=== PATIENT | female | born 2000 | race Caucasian/White ===

== ENCOUNTER 2022-04-10 19:23 | Emergency (ER) | payer BC ==
[2022-04-10] MEDS ORDERED: Ondansetron 4 MG Tab.DIS PO STA (20:00)
[2022-04-10 20:55] LABS: STREP A BY PCR NOT DETECTED (NOT DETECT)
[2022-04-10 21:09] LABS: CORONAVIRUS COVID-19 NAA NEGATIVE (NEGATIVE)
== END 2022-04-10 21:33 | disposition home or self-care (01) ==
LOC: FB.ED 19:23
DX: J02.9 Acute pharyngitis, unspecified (principal); Z20.828 Contact with and (suspected) exposure to other viral communicable diseases
CPT/HCPCS: 87635; 87651; 99281; 99284; Q0162; U0002

== ENCOUNTER 2022-05-01 17:22 | Emergency (ER) | payer BC ==
[2022-05-01] MEDS ORDERED: Metoprolol Tartrate 25 MG Tab PO ONE (17:54)
[2022-05-01 18:26] LABS: ESTIMATED GFR 136 mL/min (>60)
[2022-05-01] MEDS ORDERED: Potassium Chloride 20 MEQ Tab.ER PO STA (18:44)
== END 2022-05-01 18:58 | disposition home or self-care (01) ==
LOC: FB.ED 17:22
DX: R00.2 Palpitations (principal); E87.6 Hypokalemia; E66.9 Obesity, unspecified; Z68.41 Body mass index [BMI] 40.0-44.9, adult; Z87.891 Personal history of nicotine dependence
CPT/HCPCS: 36415; 80053; 83735; 84484; 85025; 99285; A9270-GY

== ENCOUNTER 2022-05-10 18:46 | Emergency (ER) | payer BC ==
[2022-05-10] MEDS ORDERED: Ibuprofen 800 MG Tab PO ONE (19:07)
[2022-05-10] MEDS ORDERED: Lidocaine 2% Viscous Solution 15 ML UD PO ONE (19:09)
[2022-05-10] MEDS ORDERED: Acetaminophen 500 MG Tab PO ONE (19:09)
== END 2022-05-10 19:27 | disposition home or self-care (01) ==
LOC: FB.ED 18:46
DX: T23.101A Burn of first degree of right hand, unspecified site, initial encounter (principal); E66.9 Obesity, unspecified; Z68.42 Body mass index [BMI] 45.0-49.9, adult; X12.XXXA Contact with other hot fluids, initial encounter
CPT/HCPCS: 99283; A9270-GY

== ENCOUNTER 2022-05-28 18:24 | Emergency (ER) | payer BC ==
[2022-05-28] MEDS ORDERED: Ondansetron 4 MG Tab.DIS PO ONE (18:25)
[2022-05-28] MEDS ORDERED: Promethazine 25 MG/ML SDV IM ONE (18:48)
== END 2022-05-28 19:04 | disposition home or self-care (01) ==
LOC: FB.ED 18:24
DX: O21.9 Vomiting of pregnancy, unspecified (principal); Z3A.17 17 weeks gestation of pregnancy
CPT/HCPCS: 96372; 99283; J2550; Q0162; 99281

== ENCOUNTER 2022-07-08 10:38 | Emergency (ER) | payer BC | END 2022-07-08 11:21 | disposition home or self-care (01) | LOC: FB.ED 10:38 | DX: S39.012A Strain of muscle, fascia and tendon of lower back, initial encounter (principal); S39.011A Strain of muscle, fascia and tendon of abdomen, initial encounter; E66.9 Obesity, unspecified; Z68.41 Body mass index [BMI] 40.0-44.9, adult; X50.0XXA Overexertion from strenuous movement or load, initial encounter | CPT/HCPCS: 99283 ==

== ENCOUNTER 2022-07-30 16:20 | Emergency (ER) | payer SELFPAY | END 2022-07-30 17:00 | disposition home or self-care (01) | LOC: FB.ED 16:20 | DX: L50.9 Urticaria, unspecified (principal); J45.909 Unspecified asthma, uncomplicated; E66.9 Obesity, unspecified; Z68.41 Body mass index [BMI] 40.0-44.9, adult | CPT/HCPCS: 99282 ==

== ENCOUNTER 2023-01-04 11:40 | Emergency (ER) | payer BC ==
[2023-01-04] MEDS ORDERED: Ketorolac 30 MG/ML SDV IVPUSH ONE (12:02)
[2023-01-04] MEDS ORDERED: Ondansetron 4 MG/2 ML SDV IVPUSH ONE (12:02)
[2023-01-04] MEDS ORDERED: Sodium Chloride 0.9% 1,000 ML IV SCH (12:15)
[2023-01-04 12:25] LABS: ESTIMATED GFR 136 mL/min (>60)
[2023-01-04] MEDS ORDERED: Iopamidol 755 Mg/ML 100 ML Bottle IV ONE (13:04)
== END 2023-01-04 14:22 | disposition home or self-care (01) ==
LOC: FB.ED 11:40
DX: N83.201 Unspecified ovarian cyst, right side (principal); N83.202 Unspecified ovarian cyst, left side; N39.0 Urinary tract infection, site not specified; E66.9 Obesity, unspecified; Z68.41 Body mass index [BMI] 40.0-44.9, adult; Z79.899 Other long term (current) drug therapy
CPT/HCPCS: 36415; 74177; 80053; 81001; 81025; 82150; 83690; 85025; 87086; 96361; 96374; 96375; 99283; 99284-25; J1885; J2405; J7030; Q9967

== ENCOUNTER 2023-09-30 22:59 | Emergency (ER) | payer BC ==
[2023-10-01 00:16] LABS: INFLUENZA A NAA NEGATIVE (NEGATIVE); INFLUENZA B NAA NEGATIVE (NEGATIVE)
[2023-10-01 00:18] LABS: CORONAVIRUS COVID-19 NAA POSITIVE (NEGATIVE)
== END 2023-10-01 00:51 | disposition home or self-care (01) ==
LOC: FB.ED 22:59
DX: U07.1 COVID-19 (principal); E66.9 Obesity, unspecified; Z68.41 Body mass index [BMI] 40.0-44.9, adult; J45.909 Unspecified asthma, uncomplicated; Z79.899 Other long term (current) drug therapy
CPT/HCPCS: 0240U; 87651; 99284